=== PATIENT | male | born 1985 | race Two or more races ===

== ENCOUNTER 2017-06-01 22:24 | Emergency (ER) | payer SELFPAY ==
[~2017-06-01] VITALS: Ht 175.3 cm; Wt 81.6 kg
[2017-06-01 23:00] VITALS: BP 116/82
[2017-06-02] MEDS ORDERED: HYDROcodone-ACET 10/325MG TAB PO ONE (00:30)
== END 2017-06-02 00:56 | disposition home or self-care (01) ==
LOC: EDBD 22:24 → ER 22:33
DX: S42.022A Displaced fracture of shaft of left clavicle, initial encounter for closed fracture (principal); V49.49XA Driver injured in collision with other motor vehicles in traffic accident, initial encounter; Y93.89 Activity, other specified; Y99.8 Other external cause status; Y92.410 Unspecified street and highway as the place of occurrence of the external cause
CPT/HCPCS: 29105; 73030